=== PATIENT | female | born 1945 | race Caucasian/White ===

== ENCOUNTER 2017-08-31 17:44 | Emergency (ER) | payer MEDICARE, BC ==
[2017-08-31] MEDS ORDERED: Ciprofloxacin 500 MG Tab PO ONE (18:12)
[2017-08-31] MEDS ORDERED: Codeine/guaiFENesin 100mg-10 MG/5 ML Soln 118 ML Bottle PO ONE (18:15)
--- NOTE | 2017-08-31 18:18 | EDM.PDOC ---
ED HPI GENERAL MEDICAL PROBLEM - General Chief Complaint: Respiratory Problem Stated Complaint: COLD Time Seen by Provider: 08/31/17 17:44 Source of Information: Reports: Patient, Family History Limitations: Reports: No Limitations - History of Present Illness INITIAL COMMENTS - FREE TEXT/NARRATIVE: 72 y.o.w.f came to the ed with her sister after she had a 3 day dry cough with cp when couphing, does not smoke or drink, no trauma, no F/C. Pt has occ nasal congestion Onset: Unknown/Unsure Onset Date: 08/29/17 Onset Time: 08:00 Duration: Day(s):, Intermittent Location: Reports: Chest Quality: Reports: Dull Improves with: Reports: Rest Worsens with: Reports: Movement Context: Reports: Other (cold symptoms) - Related Data Allergies Allergy/AdvReac Type Severity Reaction Status Date / Time No Known Allergies Allergy Verified 08/31/17 17:57 Home Meds: Home Meds Ciprofloxacin HCl [Cipro] 500 mg PO BID #20 tablet 08/31/17 [Rx] Levothyroxine [Levothroid] 137 mcg PO DAILY 08/31/17 [History] Meloxicam 7.5 mg PO Q6HR PRN 08/31/17 [History] Simvastatin [Zocor] 20 mg PO BEDTIME 08/31/17 [History] ED ROS GENERAL - Review of Systems Review Of Systems: See Below Constitutional: Reports: No Symptoms HEENT: Reports: Other (nasal congestions) Respiratory: Reports: Pleuritic Chest Pain Cardiovascular: Reports: No Symptoms Endocrine: Reports: No Symptoms GI/Abdominal: Reports: No Symptoms : Reports: No Symptoms Musculoskeletal: Reports: No Symptoms Skin: Reports: No Symptoms Neurological: Reports: No Symptoms Psychiatric: Reports: No Symptoms Hematologic/Lymphatic: Reports: No Symptoms Immunologic: Reports: No Symptoms ED EXAM, GENERAL - Physical Exam Exam: See Below Exam Limited By: No Limitations General Appearance: Alert, WD/WN, Mild Distress Eye Exam: Bilateral Eye: Normal Inspection Ears: Normal External Exam Ear Exam: Bilateral Ear: Auricle Normal Nose: Normal Inspection Throat/Mouth: Normal Inspection Head: Atraumatic, Normocephalic Neck: Normal Inspection, Supple, Non-Tender Respiratory/Chest: Rhonchi Cardiovascular: Normal Peripheral Pulses Peripheral Pulses: 1+: Brachial (L), Brachial (R) GI/Abdominal: Normal Bowel Sounds, Soft, Non-Tender (Female) Exam: Deferred Rectal (Female) Exam: Deferred Back Exam: Normal Inspection, Full Range of Motion Extremities: Normal Inspection, Normal Range of Motion, Non-Tender Neurological: Alert, Oriented, CN II-XII Intact, Normal Cognition Psychiatric: Normal Affect, Normal Mood Skin Exam: Warm, Dry, Intact, Normal Color, No Rash Lymphatic: No Adenopathy Course - Vital Signs Text/Narrative:: 72 y.o.w.f came to the ed with her sister after she had a 3 day dry cough with cp when couphing, does not smoke or drink, no trauma, no F/C. Pt has occ nasal congestion PE: Rhinchi, WN. Wd WF, NAD Impression: Acute bronchitis, nasal congestion Tx: cipro, cough medicine Reexam: Improved Plan: D/C with instruction Last Recorded V/S: Last Vital Signs Temp 36.9 C 08/31/17 18:00 Pulse 88 08/31/17 18:00 Resp 19 08/31/17 18:00 BP 136/73 08/31/17 18:00 Pulse Ox 98 08/31/17 18:00 - Orders/Labs/Meds Meds: Medications Discontinued Medications Generic Name Dose Route Start Last Admin Trade Name Lance PRN Reason Stop Dose Admin Ciprofloxacin 500 mg 08/31/17 18:12 08/31/17 18:18 Ciprofloxacin Hcl PO 08/31/17 18:13 500 mg ONETIME ONE Administration Departure - Departure Time of Disposition: 18:15 Disposition: Home, Self-Care 01 Condition: Good Clinical Impression: Bronchitis - Discharge Information Prescriptions: Ciprofloxacin HCl [Cipro] 500 mg PO BID #20 tablet Instructions: Acute Bronchitis Referrals: Teagan Casillas ARNP [Primary Care Provider] - Forms: ED Department Discharge Additional Instructions: Please take the meds as recommended, please f/u, please come back to the ed if your symptoms get worse acutely.
== END 2017-08-31 18:30 | disposition home or self-care (01) ==
LOC: FB.ED 17:44
DX: J20.9 Acute bronchitis, unspecified (principal); R09.81 Nasal congestion; Z79.899 Other long term (current) drug therapy
CPT/HCPCS: 99283; A9270

== ENCOUNTER 2022-07-24 07:28 | Day surgery (SDC) | payer MEDICARE, BC ==
[2022-07-24] MEDS ORDERED: Sodium Chloride 0.9% 10 ML Syringe IV ONE (07:29)
[2022-07-24] MEDS ORDERED: Midazolam 1 MG/ML 2 ML SDV IV ONE (07:29)
[2022-07-24] MEDS ORDERED: fentaNYL 100 MCG/2 ML SDV IV ONE (07:29)
[2022-07-24] MEDS ORDERED: Sodium Chloride 0.9% 10 ML Syringe FLUSH PRN (07:30)
[2022-07-24] MEDS ORDERED: Lactated Ringers 1,000 ML IV PRN (07:30)
[2022-07-24] MEDS ORDERED: acetaZOLAMIDE 500 MG Cap.ER PO ONE (09:30)
== END 2022-07-24 10:16 | disposition home or self-care (01) ==
LOC: FB.SDS 07:28
PROVIDERS: ATTEND Ophthalmology
DX: H52.201 Unspecified astigmatism, right eye (principal); H25.13 Age-related nuclear cataract, bilateral; H02.831 Dermatochalasis of right upper eyelid; H52.223 Regular astigmatism, bilateral; H02.834 Dermatochalasis of left upper eyelid; H53.032 Strabismic amblyopia, left eye; H52.03 Hypermetropia, bilateral; I10 Essential (primary) hypertension; E03.9 Hypothyroidism, unspecified; F41.1 Generalized anxiety disorder; E53.8 Deficiency of other specified B group vitamins; M85.89 Other specified disorders of bone density and structure, multiple sites; E78.5 Hyperlipidemia, unspecified; M19.90 Unspecified osteoarthritis, unspecified site; F32.A Depression, unspecified; Z98.890 Other specified postprocedural states; Z79.899 Other long term (current) drug therapy; Z79.890 Hormone replacement therapy; Z90.710 Acquired absence of both cervix and uterus
CPT/HCPCS: 00142-QZ; A9270-GY; J2250; J3010; J3490; V2632

== ENCOUNTER → 2022-08-07 | Day surgery (SDC) | payer MEDICARE, BC ==
[~2022-08-07] MED LIST: Lactated Ringers 1,000 ML IV PRN; Midazolam 1 MG/ML 2 ML SDV IV ONE; Sodium Chloride 0.9% 10 ML Syringe IV ONE; acetaZOLAMIDE 500 MG Cap.ER PO ONE; fentaNYL 100 MCG/2 ML SDV IV ONE
== END ==
LOC: FB.SDS 06:00
PROVIDERS: ATTEND Ophthalmology
DX: H25.13 Age-related nuclear cataract, bilateral (principal); H43.813 Vitreous degeneration, bilateral; H02.831 Dermatochalasis of right upper eyelid; H02.834 Dermatochalasis of left upper eyelid; H53.032 Strabismic amblyopia, left eye; H52.03 Hypermetropia, bilateral; H52.223 Regular astigmatism, bilateral; E78.5 Hyperlipidemia, unspecified; I10 Essential (primary) hypertension; E03.9 Hypothyroidism, unspecified; M17.0 Bilateral primary osteoarthritis of knee; Z98.890 Other specified postprocedural states; Z79.899 Other long term (current) drug therapy; Z88.8 Allergy status to other drugs, medicaments and biological substances; Z79.890 Hormone replacement therapy
CPT/HCPCS: 00142-QZ; A9270-GY; J2250; J3010; J3490